=== PATIENT | female | born 1960 | race Caucasian/White ===

== ENCOUNTER 2020-09-15 07:43 | Day surgery (SDC) | payer OTHER ==
[~2020-09-15 07:43] MED LIST: Lactated Ringers 1,000 ML IV SCH; Sodium Chloride 0.9% 10 ML Syringe FLUSH PRN
[2020-09-15] MEDS ORDERED: Propofol 200 MG/20 ML SDV ONE (08:15)
[2020-09-15] MEDS ORDERED: fentaNYL 100 MCG/2 ML SDV ONE (08:15)
[2020-09-15 09:57] VITALS: BP 127/88; PULSE 60
--- NOTE | 2020-09-16 08:04 | OR ---
PREOPERATIVE DIAGNOSIS: Positive family history of colon cancer in father who is in his late 80s. The patient's last colonoscopy was 2014. POSTOPERATIVE DIAGNOSES: 1. Two small polyps removed using cold forceps. a. 3 mm polyp at 100 cm. b. 2 mm polyp at 20 cm. 2. Minimal left-sided diverticulosis. 3. Mild hemorrhoids, not acutely inflamed. 4. Normal-appearing distal ileum. PROCEDURE: Colonoscopy with polypectomy x2 using cold forceps. SURGEON: Joe Sol M.D. ANESTHESIA: Monitored anesthesia care. BOWEL PREP: Good. INDICATION: Teri is a 60-year-old female who was brought to the endoscopy suite after discussing risks and benefits of the procedure. Informed consent was obtained for conscious sedation and colonoscopy with or without biopsy and/or polypectomy. We also discussed possibility of missed lesions. Pre-procedure exam was unremarkable. IV, oxygen, and monitors were placed. The patient was placed in the left lateral decubitus position. Sedation was administered and a digital rectal exam was performed and unremarkable. Colonoscope was passed into the rectum and slowly advanced all the way to the cecum. Cecum was viewed and photographed. Ileocecal valve was intubated and distal ileum was normal in appearance. The colonoscope was slowly withdrawn and the mucosa was closed observed in a direct circumferential manner. The ascending colon was remarkable for 3 mm polyp at 100 cm, removed using a couple bites of cold forceps. Transverse colon unremarkable. The descending and sigmoid colon revealed some minimal scattered diverticulosis. Sigmoid colon was remarkable for 2 mm polyp at 20 cm, removed using cold forceps. Retroflexion was performed and rectal mucosa was remarkable for some mild hemorrhoids, not acutely inflamed. Scope was removed. The patient tolerated the procedure well. The patient was monitored until that baseline status. Discharge instructions were reviewed and the patient was discharged in good condition. COMPLICATIONS: None. TOTAL TIME: 21 minutes. ESTIMATED BLOOD LOSS: Less than 1 mL. RECOMMENDATIONS/FOLLOW-UP: We will await results of path report to determine ideal followup interval. I am going to have her hold her aspirin until Saturday just to limit any chance of bleeding from polypectomy sites. I would like to kindly thank Nina Bledsoe for this referral. DMB: 09/15/2020 10:02:47 MODL: 09/15/2020 14:43:49 /[id number]
== END 2020-09-15 11:05 | disposition home or self-care (01) ==
LOC: VM.SDS 07:43
PROVIDERS: ATTEND Family Medicine
DX: Z12.11 Encounter for screening for malignant neoplasm of colon (principal); D12.6 Benign neoplasm of colon, unspecified; K57.30 Diverticulosis of large intestine without perforation or abscess without bleeding; K64.9 Unspecified hemorrhoids; E78.00 Pure hypercholesterolemia, unspecified; M35.00 Sjogren syndrome, unspecified; Z80.0 Family history of malignant neoplasm of digestive organs; Z01.812 Encounter for preprocedural laboratory examination; Z20.822 Contact with and (suspected) exposure to COVID-19; Z90.11 Acquired absence of right breast and nipple; Z79.899 Other long term (current) drug therapy; Z98.890 Other specified postprocedural states; Z85.3 Personal history of malignant neoplasm of breast
CPT/HCPCS: 00811; J2704; J3010; J7120; U0002